=== PATIENT | male | born 1995 | race Caucasian/White ===

== ENCOUNTER 2022-12-01 16:55 | Emergency (ER) | payer SELFPAY ==
[~2022-12-01] VITALS: Ht 180.3 cm; Wt 118.0 kg
[~2022-12-01 16:55] MED LIST: DM/P295L17; FAMO10TA PO; LANS15CA15 PO; PRED20TA PO; [UNRECOGNIZED DRUG - OTHER]
[2022-12-01 17:10] VITALS: BP 131/87; PULSE 77; RESP 16; TEMP 98; O2SAT 97
[2022-12-01] MEDS ORDERED: NAPR-56 PO (17:54)
== END 2022-12-01 18:05 | disposition home or self-care (01) ==
LOC: ER 17:04
DX: S90.111A Contusion of right great toe without damage to nail, initial encounter (principal); F12.90 Cannabis use, unspecified, uncomplicated; F41.9 Anxiety disorder, unspecified; Z79.899 Other long term (current) drug therapy; M79.674 Pain in right toe(s); X58.XXXA Exposure to other specified factors, initial encounter; Y93.89 Activity, other specified; Y92.89 Other specified places as the place of occurrence of the external cause; Y99.8 Other external cause status
CPT/HCPCS: 73660; 99283